=== PATIENT | male | born 2000 | race African-American/Black ===

== ENCOUNTER 2024-03-09 07:47 | Outpatient (RCR) | payer BC, OTHER | END 2024-04-05 | LOC: PT 07:47 | PROVIDERS: ATTEND Surgery Trauma Surgery | DX: M25.671 Stiffness of right ankle, not elsewhere classified (principal); M62.81 Muscle weakness (generalized); R26.2 Difficulty in walking, not elsewhere classified; W34.00XD Accidental discharge from unspecified firearms or gun, subsequent encounter ==